=== PATIENT | male | born 1980 | race Caucasian/White ===

== ENCOUNTER 2023-06-19 10:35 | Emergency (ER) | payer MEDICAID ==
[~2023-06-19] VITALS: Ht 167.6 cm; Wt 82.0 kg
[2023-06-19 10:46] VITALS: O2SAT 98
[2023-06-19] MEDS ORDERED: OXYCODONE HCL/ACETAMINOPHEN 5/325MG TABLET PO ONE (11:15)
[2023-06-19] MEDS ORDERED: OFLO5DRO4 RIGHT EAR (14:14)
[2023-06-19 15:21] VITALS: BP 132/77; PULSE 100; RESP 16; TEMP 98.7
== END 2023-06-19 15:22 | disposition home or self-care (01) ==
LOC: ER 10:35
DX: H57.11 Ocular pain, right eye (principal)
CPT/HCPCS: 70486; 99284